=== PATIENT | female | born 1975 | race Asian ===

== ENCOUNTER 2017-04-27 02:12 | Emergency (ER) | payer BC, OTHER ==
[~2017-04-27] VITALS: Ht 167.6 cm; Wt 67.9 kg
[2017-04-27 02:15] VITALS: BP 179/109
[2017-04-27] MEDS ORDERED: HYDROcodone/APAP 5/325 TABLET PO ONE (03:00)
[2017-04-27] MEDS ORDERED: HYDROcodone/APAP 5/325 TABLET ONE (03:12)
== END 2017-04-27 04:25 | disposition home or self-care (01) ==
LOC: ED 04:13
DX: K08.89 Other specified disorders of teeth and supporting structures (principal)
CPT/HCPCS: 99283